=== PATIENT | female | born 1965 | race American Indian/Alaskan Native ===

== ENCOUNTER 2018-07-27 09:25 | Outpatient (CLI) | payer BC ==
--- NOTE | 2018-07-27 10:31 | Ultrasound Report ---
THYROID ULTRASOUND:07/27/18 09:25:00 CLINICAL: History of thyroid cancer status post thyroidectomy. COMPARISON: 12/06/14 FINDINGS: High-resolution ultrasound demonstrated no residual thyroid and no mass. Bilateral jugular lymph nodes with central fat and benign morphology. A right level II lymph node measures 7 x 4 x 11 mm. A left level III lymph node measures 15 x 3 x 9 mm. IMPRESSION: Normal study status post total thyroidectomy.
== END 2018-07-27 09:26 | disposition home or self-care (01) ==
LOC: SPVWC 09:25
PROVIDERS: ATTEND Internal Medicine Endocrinology, Diabetes & Metabolism
DX: C73 Malignant neoplasm of thyroid gland (principal); Z90.89 Acquired absence of other organs
CPT/HCPCS: 76536

== ENCOUNTER 2018-08-04 08:02 | Outpatient (CLI) | payer BC ==
--- NOTE | 2018-08-04 09:41 | Mammography Report ---
BILATERAL DIGITAL DIAGNOSTIC MAMMOGRAM with CAD and RIGHT BREAST ULTRASOUND: 08/04/18 CLINICAL: Right breast lump felt by her doctor. She does not feel a lump. COMPARISON:None available. Her last mammogram was approximately 10 years ago. FINDINGS: The breasts are heterogeneously dense, which may obscure small masses. A bilobed circumscribed benign mass with calcifications in the lower outer quadrant of the right breast. No other mass, suspicious architectural distortion or suspicious calcifications . Ultrasound of the right breast (including all four quadrants and the retroareolar area) was performed. A solid slightly irregular hypoechoic mass at 8 o'clock 5 cm from the nipple measures approximately 8 x 8 x 6 mm. It has an adjacent but separate oval solid heterogeneous hypoechoic mass at 8 o'clock 5 cm from nipple measures 5 x 3 x 4 mm. The larger mass has peripheral calcifications and the 2 masses together correlate with what appears to be a single mammographic mass. No other mass and no architectural distortion or suspicious calcifications. IMPRESSION: Benign 8mm in 5 mm right breast masses at 8 o'clock 5 cm from the nipple. The sonographic and mammographic characteristics suggest benign fibroadenomas. Negative left breast. BI-RADS CATEGORY: 2 -- Benign RECOMMENDATION: Clinical followup and routine mammographic screening in one year. ACR BI-RADS MAMMOGRAPHIC CODES: 0 = Needs additional imaging evaluation; 1 = Negative; 2 = Benign; 3 = Probably benign; 4 = Suspicious; 5 = Malignant; 6 = Known biopsy-proven malignancy COMMENT: 1. Dense breast tissue, i.e., adenosis, fibrocystic changes, etc., may obscure an underlying neoplasm. 2. Approximately 10% of cancers are not detected with mammography. 3. A negative mammography report should not delay biopsy if a clinically suspicious mass is present. COMMENT: Patient follow-up letters are generated by our [employer] software application.
== END 2018-08-04 08:03 | disposition home or self-care (01) ==
LOC: SPVWC 08:02
PROVIDERS: ATTEND Internal Medicine
DX: N63.13 Unspecified lump in the right breast, lower outer quadrant (principal)
CPT/HCPCS: 77066

== ENCOUNTER 2019-08-14 07:40 | Outpatient (CLI) | payer BC ==
--- NOTE | 2019-08-15 08:20 | Mammography Report ---
DIGITAL SCREENING MAMMOGRAM WITH CAD, 08/14/2019 INDICATION: Routine screening mammography. TECHNIQUE: Digital bilateral 2D mammography was obtained in the craniocaudal and mediolateral obliq ue projections. This examination was interpreted with the benefit of Computer-Aided Detection analysi s. COMPARISON: 08/04/2018 FINDINGS: Breast Density: The breasts are heterogeneously dense, which may obscure small masses. There is no evidence of new mass, suspicious calcifications or architectural distortion in either chante ast. Stable 1 cm partially calcified right lower outer fibroadenoma. IMPRESSION: No mammographic evidence of malignancy. Follow up recommendation: Routine yearly BI-RADS Category 2: Benign. A "normal" or negative report should not discourage follow up or biopsy of a clinically significant f inding. A written summary of these findings will be mailed to the patient. The patient will be entered into a mammography reporting system which will generate a reminder letter for the patient's next appointmen t at the appropriate interval. The [employer] recommends yearly mammograms starting at age 40 and continuing as l dana as a woman is in good health. Breast MRI is recommended for women with an approximate 20-25% or greater lifetime risk of breast cancer, including women with a strong family history of breast or ova ronnie cancer or who have been treated for Hodgkin's disease. Signer Name: Kingsley Chandler MD Signed: 08/15/2019 8:16 AM Workstation Name: [id number]
== END 2019-08-14 07:41 | disposition home or self-care (01) ==
LOC: MAMMO 07:40
PROVIDERS: ATTEND Internal Medicine
DX: Z12.31 Encounter for screening mammogram for malignant neoplasm of breast (principal)
CPT/HCPCS: 77067

== ENCOUNTER 2020-08-15 07:11 | Outpatient (CLI) | payer BC ==
--- NOTE | 2020-08-15 15:47 | Mammography Report ---
DIGITAL SCREENING MAMMOGRAM WITH CAD, 08/15/2020 INDICATION: Routine screening mammography. TECHNIQUE: Digital bilateral 2D mammography was obtained in the craniocaudal and mediolateral obliq ue projections. This examination was interpreted with the benefit of Computer-Aided Detection analysi s. COMPARISON: Prior mammograms 08/14/2019 and 08/04/2018 FINDINGS: Breast Density: The breasts are heterogeneously dense, which may obscure small masses. There is no evidence of dominant mass, suspicious calcifications or architectural distortion in eithe r breast. There is a stable nodular density with associated benign appearing calcifications in the ri ght breast. There has been no significant change compared with the prior examinations. IMPRESSION: Follow up recommendation: Routine yearly BI-RADS Category 2: Benign. A "normal" or negative report should not discourage follow up or biopsy of a clinically significant f inding. A written summary of these findings will be mailed to the patient. The patient will be entered into a mammography reporting system which will generate a reminder letter for the patient's next appointmen t at the appropriate interval. The [employer] recommends yearly mammograms starting at age 40 and continuing as l dana as a woman is in good health. Breast MRI is recommended for women with an approximate 20-25% or greater lifetime risk of breast cancer, including women with a strong family history of breast or ova ronnie cancer or who have been treated for Hodgkin's disease. Signer Name: Zoë Guerrero MD Signed: 08/15/2020 3:43 PM Workstation Name: [id number]
== END 2020-08-15 07:12 | disposition home or self-care (01) ==
LOC: MAMMO 07:11
PROVIDERS: ATTEND Internal Medicine
DX: Z12.31 Encounter for screening mammogram for malignant neoplasm of breast (principal); N64.89 Other specified disorders of breast
CPT/HCPCS: 77067

== ENCOUNTER 2021-08-18 07:50 | Outpatient (CLI) | payer BC ==
--- NOTE | 2021-08-19 09:59 | Mammography Report ---
DIGITAL SCREENING MAMMOGRAM WITH CAD, 08/18/2021 CLINICAL INFORMATION / INDICATION: Routine screening mammography. SCREENING MAMMOGRAM TECHNIQUE: Digital bilateral 2D mammography was obtained in the craniocaudal and mediolateral obliqu e projections. This examination was interpreted with the benefit of Computer-Aided Detection analysis . COMPARISON: 08/15/2020, 08/14/2019. FINDINGS: Breast Density: There are scattered areas of fibroglandular density. No dominant mass, suspicious calcifications, or architectural distortion in either breast. Benign-appearing right-sided nodularity is unchanged. IMPRESSION: No mammographic evidence of malignancy. Follow up recommendation: Routine yearly BI-RADS Category 2: Benign. A "normal" or negative report should not discourage follow up or biopsy of a clinically significant f inding. A written summary of these findings will be mailed to the patient. The patient will be entered into a mammography reporting system which will generate a reminder letter for the patient's next appointmen t at the appropriate interval. The [employer] recommends yearly mammograms starting at age 40 and continuing as l dana as a woman is in good health. Breast MRI is recommended for women with an approximate 20-25% or greater lifetime risk of breast cancer, including women with a strong family history of breast or ova ronnie cancer or who have been treated for Hodgkin's disease. Signer Name: James Ca MD Signed: 08/19/2021 9:55 AM Workstation Name: [id number]
== END 2021-08-18 07:51 | disposition home or self-care (01) ==
LOC: MAMMO 07:50
PROVIDERS: ATTEND Internal Medicine
DX: Z12.31 Encounter for screening mammogram for malignant neoplasm of breast (principal)
CPT/HCPCS: 77067